=== PATIENT | female | born 1980 | race Two or more races ===

== ENCOUNTER 2021-11-07 14:58 | Emergency (ER) | payer SELFPAY ==
[~2021-11-07] VITALS: Ht 152.4 cm; Wt 85.4 kg
[2021-11-07 15:40] VITALS: BP 163/106
[2021-11-07] MEDS ORDERED: IBUPROFEN 200 MG TABLET. PO ONE (16:00)
--- NOTE | 2021-11-07 16:09 | PHYS DOC ---
Past Medical History Past Surgical History: No Surgical History General Adult EDM: Chief Complaint: FINGER INJURY HPI: HPI: Patient is a 41 year old female presents with right fourth finger trauma. Patient states that she closed her garage door on her right fourth finger. Patient states this is not an automatic garage door, it is a manual so she is landed on her finger. She had instant pain, she presents immediately after this injury. She is hemodynamically stable, alert and oriented, otherwise doing well. Review of Systems: Review of Systems: Constitutional: Denies fever or chills. [] Eyes: Denies change in visual acuity. [] HENT: Denies nasal congestion or sore throat. [] Respiratory: Denies cough or shortness of breath. [] Cardiovascular: Denies chest pain or edema. [] GI: Denies abdominal pain, nausea, vomiting, bloody stools or diarrhea. [] : Denies dysuria. [] Musculoskeletal: Denies back pain, positive finger pain [] Integument: Denies rash. [] Neurologic: Denies headache, focal weakness or sensory changes. [] Endocrine: Denies polyuria or polydipsia. [] Lymphatic: Denies swollen glands. [] Psychiatric: Denies depression or anxiety. [] Heart Score: C/O Chest Pain: No Risk Factors: Risk Factors: DM, Current or recent (<one month) smoker, HTN, HLP, family his tory of CAD, obesity. Risk Scores: Score 0 - 3: 2.5% MACE over next 6 weeks - Discharge Home Score 4 - 6: 20.3% MACE over next 6 weeks - Admit for Clinical Observation Score 7 - 10: 72.7% MACE over next 6 weeks - Early Invasive Strategies Current Medications: Current Medications Medications (Trade) Dose Ordered Sig/[facility] Start Time Stop Time Status Last Admin Dose Admin Ibuprofen (Motrin) 600 mg 1X ONCE 11/07/21 16:00 11/07/21 16:06 DC Allergies: Allergies: Allergies Coded Allergies Type Severity Reaction Last Updated Verified No Known Drug Allergies 11/07/21 No Physical Exam: PE: Constitutional: Well developed, well nourished, no acute distress, non-toxic appearance. [] HENT: Normocephalic, atraumatic, bilateral external ears normal, oropharynx moist, no oral exudates, nose normal. [] Eyes: PERRLA, EOMI, conjunctiva normal, no discharge. [] Neck: Normal range of motion, no tenderness, supple, no stridor. [] Cardiovascular:Heart rate regular rhythm, no murmur [] Lungs & Thorax: Bilateral breath sounds clear to auscultation [] Abdomen: Bowel sounds normal, soft, no tenderness, no masses, no pulsatile masses. [] Skin: Warm, dry, no erythema, no rash. [] Back: No tenderness, no CVA tenderness. [] Extremities: Right fourth finger tenderness past the DIP, no pain proximal to the DIP.. [] Neurologic: Alert and oriented X 3, normal motor function, normal sensory function, no focal deficits noted. [] Psychologic: Affect normal, judgement normal, mood normal. [] Current Patient Data: Vital Signs: Vital Signs Date Time Temp Pulse Resp B/P (MAP) Pulse Ox O2 Delivery O2 Flow Rate FiO2 /15/22 15:40 98.4 88 22 163/106 (125) 99 Room Air 98.4 EKG: EKG: [] Radiology/Procedures: Radiology/Procedures: X-ray finger - no acute fracture[] Impression: finger contusion Course & Med Decision Making: Course & Med Decision Making Pertinent Labs and Imaging studies reviewed. (See chart for details) 41-year-old female with finger contusion. X-ray with no fracture. Explained the findings with the patient. Gave 1 dose of 600 mg ibuprofen. Patient discharged in stable condition. Patient will follow up with primary care physician if still having pain in 1 to 2 weeks. Otherwise patient was instructed to take Tylenol or ibuprofen for pain. Patient hemodynamically stable. Patient discharged in good condition. Patient agreed with the plan of care. All questions answered. ER precautions given. Shelbi Disclaimer: Shelbi Disclaimer: This electronic medical record was generated, in whole or in part, using a voice recognition dictation system. Departure Departure Disposition: 01 HOME / SELF CARE / HOMELESS Condition: GOOD Additional Instructions: Follow-up with your primary care physician in 1 to 2 weeks You may use Tylenol and ibuprofen for pain relief JOSH MONAHAN MD November 07, 2021 16:09
--- NOTE | 2021-11-07 20:15 | RAD ---
Right hand 3 views: Reason for examination: Trauma. There is a linear lucency across the terminal tuft at the distal phalanx of the middle finger. No oth er site of fracture or dislocation is seen. The bone density is normal. No abnormal periosteal reacti on is seen. IMPRESSION: Lucency at the terminal tuft at the distal phalanx of the middle finger consistent with a nondisplace d fracture. No other focal abnormality seen in the right hand. Electronically signed by: Kerri Zavala MD (11/07/2021 8:13 PM) ALEX
== END 2021-11-07 17:13 | disposition home or self-care (01) ==
LOC: ER 14:58
DX: S60.041A Contusion of right ring finger without damage to nail, initial encounter (principal); W23.0XXA Caught, crushed, jammed, or pinched between moving objects, initial encounter; Y93.89 Activity, other specified; Y92.89 Other specified places as the place of occurrence of the external cause; Y99.8 Other external cause status
CPT/HCPCS: 73130; 99283